=== PATIENT | male | born 2005 | race Hispanic/Latino ===

== ENCOUNTER 2024-11-07 17:11 | Emergency (ER) | payer MEDICAID ==
[~2024-11-07] VITALS: Ht 167.6 cm; Wt 63.0 kg
[2024-11-07] MEDS: NS (Normal Saline) 0.9% 1,000 ML IV ONE (18:55)
[2024-11-07 19:11] LABS: BASO # 0.0 10^3/uL (0.0-0.2); BASO % 0.3 % (0.0-1.0); EOS # 0.0 10^3/uL (0.0-0.5); EOS % 0.0 % (0.0-3.0); LYMPH # 1.4 10^3/uL (1.5-5.0); LYMPH % 8.5 % (24.0-44.0); MONO # 1.0 10^3/uL (0.0-0.8); MONO % 6.3 % (2.0-8.0); NEUTROPHILS # 13.3 10^3/uL (1.5-8.5); NEUTROPHILS % 84.0 % (36.0-66.0); PLATELET COUNT, AUTOMATED 288 10^3/uL (150-450)
[2024-11-07 19:39] LABS: FREE T4 1.29 NG/DL (0.83-1.43)
[2024-11-07 19:48] LABS: CALCIUM LEVEL 9.4 MG/DL (8.5-10.1); CARBON DIOXIDE LEVEL 25 MMOL/L (20-31); CHLORIDE LEVEL 104 MMOL/L (98-107); CREATININE FOR GFR 0.96 MG/DL (0.70-1.30); GLOMERULAR FILTRATION RATE > 90.0 (>60); MAGNESIUM LEVEL 2.6 MG/DL (1.8-2.4); POTASSIUM SERUM 2.9 MMOL/L (3.5-5.1); SODIUM LEVEL 143 MMOL/L (136-145)
[2024-11-07] MEDS: POTASSIUM CHLORIDE 10MEQ SR TABLET PO ONE (19:50)
[2024-11-07 20:30] VITALS: BP 122/72; TEMP 97.8; O2SAT 100
== END 2024-11-07 20:40 | disposition home or self-care (01) ==
LOC: EDBD 17:11 → M ED 17:11
DX: R55 Syncope and collapse (principal); R56.00 Simple febrile convulsions; E87.6 Hypokalemia